=== PATIENT | male | born 1940 | race Caucasian/White ===

== ENCOUNTER → 2023-10-18 13:16 | Outpatient (CLI) | payer OTHER, SELFPAY ==
--- NOTE | 2023-10-18 13:19 | DI.ECHO.S_ITS ---
[facility]+ [facility] : : [address] : : [place] : : [id number] : : Phone: [phone] Echocardiogram Report + + :Name: JAMILA MENCHACA Study Date: 10/18/2023 Height: 74 in : :[facility] ReadingLocation: Weight: 200 lb : : Gender: Male BSA: 2.2 m2 : :: 1940 Age: 83 yrs BP: 119/70 mmHg: :Reason For Study: CAD : :Ordering Physician: DAVID, : :MARLYN Performed By: Giovana Bradford : :Referring: MARLYN HERNANDEZ : + + Interpretation Summary There is mild concentric left ventricular hypertrophy. The ejection fraction is estimated to be 60-65%. The right ventricle is mildly dilated. Right ventricular systolic function is mildly reduced. There is mild mitral regurgitation. There is mild aortic regurgitation. There is mild tricuspid regurgitation. Procedure: A two-dimensional transthoracic echocardiogram with color flow and Doppler was performed. The study quality was technically adequate. There is no prior echocardiogram noted for this patient. The patient was in sinus bradycardia with heart rates between 53-60 bpm during the exam. Left Ventricle: The left ventricle is normal in size. There is mild concentric left ventricular hypertrophy. The ejection fraction is estimated to be 60-65%. Left ventricular wall motion is normal. Right Ventricle: The right ventricle is mildly dilated. Right ventricular systolic function is mildly reduced. Atria: The left atrial size is normal. Right atrial size is normal. There is no Doppler evidence for an interatrial shunt. Mitral Valve: The mitral valve leaflets appear mildly thickened, but open well. There is mild mitral regurgitation. Aortic Valve: The aortic valve is trileaflet. The aortic valve opens well. There is no aortic valve stenosis. There is mild aortic regurgitation. Tricuspid Valve: The tricuspid valve is normal in structure and function. There is mild tricuspid regurgitation. Right ventricular systolic pressure is estimated to be 17 mmHg plus the clinically estimated CVP which cannot be estimated on this exam. Pulmonic Valve: The pulmonic valve is not well visualized. There is no pulmonic valvular regurgitation. Great Vessels: The aortic root is normal size. The dimensions of the ascending aorta are normal. The inferior vena cava was not well visualized. Pericardium/ Pleura There is no pericardial effusion. There is no pleural effusion. MMode/2D Measurements & Calculations LVIDd: 4.8 cm LVOT diam: 2.0 cm LVIDs: 3.6 cm Ao root diam: 3.6 cm FS: 24.9 % asc Aorta Diam: 3.3 cm IVSd: 1.2 cm Ao Arch Diam (Prox Trans): 3.3 cm LVPWd: 0.95 cm LV dee. diameter/BSA (cm/m^2): 2.2 LV sys. diameter/BSA (cm/m^2): 1.6 LA A2 area: 23.1 cm2 RA long axis: 6.0 cm LA A4 area: 19.1 cm2 RA area: 19.0 cm2 LA length (vol): 6.4 cm RA vol: 51.3 ml LA vol: 58.8 ml RA : 23.6 ml/m2 LA vol index: 27.0 ml/m2 RVD1 (basal): 4.4 cm TAPSE: 1.5 cm Doppler Measurements & Calculations Ao V2 max: 149.8 cm/sec LVOT Max New: 89.4 cm/sec Ao V2 mean: 106.7 cm/sec LV V1 max P.2 mmHg Ao max P.0 mmHg LV V1 VTI: 18.3 cm Ao mean P.0 mmHg RUDY(I,D): 1.9 cm2 Ao V2 VTI: 31.3 cm RUDY(V,D): 2.0 cm2 sev ratio: 0.58 RUDY indexed to BSA (cm^2/m^2): 0.89 MV E max new: 58.1 cm/sec TR max new: 205.7 cm/sec MV A max new: 69.6 cm/sec TR max P.9 mmHg MV E/A: 0.83 PA V2 max: 103.2 cm/sec Med Peak E' New: 6.3 cm/sec PA V2 mean: 79.6 cm/sec E/E' med: 9.2 PA mean P.7 mmHg Lat Peak E' New: 10.2 cm/sec PA pr(Accel): 46.5 mmHg E/E' lat: 5.7 E/e' average: 7.4 MV dec time: 0.30 sec SV(LVOT): 60.2 ml Reading Physician:04:37 PM
== END ==
PROVIDERS: Referring Provider Chiropractor; Visit Provider Chiropractor
DX: I08.3 Combined rheumatic disorders of mitral, aortic and tricuspid valves (principal); I25.10 Atherosclerotic heart disease of native coronary artery without angina pectoris; R00.1 Bradycardia, unspecified
CPT/HCPCS: 93306